=== PATIENT | male | born 1990 | race Hispanic/Latino ===

== ENCOUNTER 2018-10-12 10:57 | Emergency (ER) | payer SELFPAY ==
[~2018-10-12 10:57] MED LIST: Sodium Chloride 0.9% 100 ML BAG ONE
[2018-10-12] MEDS ORDERED: Acetaminophen 500 MG TAB ONE (11:20)
[2018-10-12] MEDS ORDERED: cefTRIAXone\\ROCEPHIN 1 GM VIAL ONE (11:45)
[2018-10-12] MEDS ORDERED: Sodium Chloride 0.9% 2,000 ML ONE (11:45)
[2018-10-12 12:03] LABS: #Basophils 0.3 thou/uL (0.0-0.2); #Monocytes 2.1 thou/uL (0.11-0.59); #Neutrophils 14.3 thou/uL (1.40-6.50); %Basophils 1.4 % (0.0-1.0); %Lymphocytes 15.2 % (21.0-51.0); %Monocytes 10.5 % (0.0-10.0); %Neutrophils 72.8 % (42.0-75.0); Hemoglobin 14.1 g/dL (14.0-18.0); Mean Corpuscular HGB CONC 32.3 g/dL (32.0-36.0); Mean Corpuscular Hemoglobin 25.1 pg (27.0-31.0); Mean Corpuscular Volume 77.5 fL (78.0-98.0); Mean Platelet Volume 7.8 fL (7.4-10.4); Platelet Count 281 thou/uL (130-400); RBC Distribution Width 12.8 % (11.5-14.5); Red Blood Cell (RBC) Count 5.62 mill/uL (4.70-6.10); White Blood Cell (WBC) Count 19.6 thou/uL (4.8-10.8)
[2018-10-12 12:23] LABS: ALT (SGPT) 53 U/L (8-55); AST (SGOT) 27 U/L (5-34); Albumin 4.4 g/dL (3.5-5.0); Alkaline Phosphatase 52 U/L (40-150); Anion Gap 17 mmol/L (10-20); BUN (Urea Nitrogen) 12 mg/dL (8.9-20.6); Bilirubin, Total 1.3 mg/dL (0.2-1.2); Calc. Creatinine Clearance 0 mL/min (70-130); Calcium 9.6 mg/dL (7.8-10.44); Carbon Dioxide 22 mmol/L (22-29); Chloride 100 mmol/L (98-107); Estimated GFR-MDRD 79; Globulin 5.1 g/dL (2.4-3.5); Glucose 113 mg/dL (70-105); Potassium 3.8 mmol/L (3.5-5.1); Protein, Total 9.5 g/dL (6.0-8.3); Sodium 135 mmol/L (136-145)
[2018-10-12 12:37] LABS: Bilirubin Negative (Negative); Blood, Urine Moderate (Negative); Glucose, Urine (Dipstick) Negative (Negative); Leukocyte Large (Negative); Nitrite Negative (Negative); Protein, Urine (Dipstick) > or equal to 300 mg/dL (Neg-Trace); Urobilinogen 0.2 mg/dL (0.2-1.0); pH, Urine 5.5 (5.0-9.0)
[2018-10-12 12:38] LABS: Clarity Cloudy (Clear)
[2018-10-12 12:43] LABS: Bacteria/HPF 2+ HPF (None Seen); Squamous Epithelial 0-3 HPF (0-3)
== END 2018-10-12 14:01 | disposition short-term general hospital (02) ==
LOC: MADERS 10:57
DX: N39.0 Urinary tract infection, site not specified (principal)
CPT/HCPCS: 80053; 81003; 81015; 83605; 84484; 85025; 87040; 87077; 87086; 87804; 93005; 96361; 96365; J0696; J7050

== ENCOUNTER 2023-04-13 16:58 | Emergency (ER) | payer OTHER, SELFPAY ==
[2023-04-13] MEDS ORDERED: Boostrix 0.5 ML (Tdap) VIAL (>/=7 yrs of age) ONE (17:10)
[2023-04-13] MEDS ORDERED: Lidocaine 1% w/Epinephrine 1:100K 20 ML VIAL ONE (17:10)
[2023-04-13] MEDS ORDERED: Lidocaine 2% 20 ml MDV ONE (17:11)
== END 2023-04-13 18:38 | disposition home or self-care (01) ==
LOC: MADERS 16:58
DX: S61.300A Unspecified open wound of right index finger with damage to nail, initial encounter (principal); W19.XXXA Unspecified fall, initial encounter
CPT/HCPCS: 12001; 90471; 90715